=== PATIENT | male | born 1985 | race Caucasian/White ===

== ENCOUNTER 2016-07-17 16:20 | Emergency (ER) | payer OTHER ==
[2016-07-17 17:02] VITALS: BP 147/74
--- NOTE | 2016-07-17 17:16 | UC ---
Upper Extremity HPI - HPI Summary HPI Summary: 30 yo male got his right arm caught between cows at work yesterday He is right handed hurts to lift - History of Current Complaint Chief Complaint: UCUpperExtremity Stated Complaint: ARM INJURY Time Seen by Provider: 07/17/16 17:05 Hx Obtained From: Corporate Strategist Onset/Duration: Sudden Onset, Lasting Days Severity Initially: Moderate Severity Currently: Moderate Pain Intensity: 4 Pain Scale Used: 0-10 Numeric Location Of Pain: Is Diffuse Character: Aching Aggravating Factor(s): Movement, Lifting Alleviating Factor(s): Rest Related History: Occupational Injury, Dominant Hand Right - Allergies/Home Medications Allergies/Adverse Reactions: Allergies Allergy/AdvReac Type Severity Reaction Status Date / Time No Known Allergies Allergy Verified 07/17/16 17:03 Home Medications: Home Medications NK [No Home Medications Reported] 07/17/16 [History Confirmed 07/17/16] PMH/Surg Hx/FS Hx/Imm Hx Previously Healthy: Yes - Surgical History Surgical History: None - Family History Known Family History: Negative: Diabetes - Social History Alcohol Use: None Substance Use Type: None Smoking Status (MU): Former Smoker Review of Systems Constitutional: Negative Skin: Negative Eyes: Negative ENT: Negative Respiratory: Negative Cardiovascular: Negative Gastrointestinal: Negative Genitourinary: Negative Motor: Negative Neurovascular: Negative Musculoskeletal: Myalgia Neurological: Negative Psychological: Negative All Other Systems Reviewed And Are Negative: Yes Physical Exam Triage Information Reviewed: Yes Appearance: Well-Appearing, No Pain Distress, Well-Nourished Vital Signs: Initial Vital Signs Temp 99.7 F 07/17/16 16:58 Pulse 66 07/17/16 16:58 Resp 18 07/17/16 16:58 BP 147/74 07/17/16 16:58 Pulse Ox 99 07/17/16 16:58 Vital Signs Reviewed: Yes Eyes: Positive: Conjunctiva Clear ENT: Positive: Hearing grossly normal. Negative: Nasal congestion, Nasal drainage, Trismus, Muffled/hoarse voice Neck: Positive: Supple Respiratory: Positive: No respiratory distress, No accessory muscle use Cardiovascular: Negative: Tachycardia, Bradycardia Musculoskeletal Exam: Other - see image Neurological: Positive: Alert Psychological Exam: Normal Skin Exam: Normal Upper Extremity Course/Dx - Differential Dx/Diagnosis Provider Diagnoses: right arm contusion Discharge - Discharge Plan Condition: Stable Disposition: HOME Patient Education Materials: Contusion in Adults (ED) Print Language: WELSH Forms: *Work Release Referrals: No Primary Care Phys,NOPCP [Primary Care Provider] - Additional Instructions: peewee wrap during the day advil 2 up to 4 times a day for pain recheck in one week if not better Images Front/Back of Body, Lg ([place]): 1 - tender/no ecchymosis
--- NOTE | 2016-07-17 17:42 | RAD ---
INDICATION: Right humerus injury COMPARISON: None TECHNIQUE: AP, lateral, and oblique views were obtained. FINDINGS: The bony structures, joint spaces, and soft tissues are normal for age. IMPRESSION: NEGATIVE EXAMINATION.
== END 2016-07-17 18:21 | disposition home or self-care (01) ==
LOC: EDBD → UCEAST 16:20
DX: S40.021A Contusion of right upper arm, initial encounter (principal); Z87.891 Personal history of nicotine dependence; W55.29XA Other contact with cow, initial encounter; Y92.9 Unspecified place or not applicable; Y99.0 Civilian activity done for income or pay
CPT/HCPCS: 99202; G0463

== ENCOUNTER 2017-09-13 11:33 | Emergency (ER) | payer SELFPAY ==
[2017-09-13 11:49] VITALS: BP 151/95
[2017-09-13] MEDS ORDERED: Tetan/Diph/Pertus SYR(Tdap)* 0.5 ML SYR(BOOSTRIX) use SYR IM ONE (12:19)
--- NOTE | 2017-09-13 12:20 | UC ---
Hand/Wrist HPI - History Of Current Complaint Hx Obtained From: Patient, Bar Assistant Onset/Duration: Sudden Onset - cut top of R index finger with a hoof saw. Severity Currently: Moderate Pain Intensity: 4 Character Of Pain: Throbbing Aggravating Factor(s): Movement Alleviating Factor(s): Compression Associated Signs And Symptoms: Positive: Other - bleeding <Kathi Colón - Last Filed: 09/13/17 12:59> <Yodit James - Last Filed: 09/13/17 14:09> - History Of Current Complaint Chief Complaint: UCLaceration Stated Complaint: HAND LACS Time Seen by Provider: 09/13/17 12:03 - Allergies/Home Medications Allergies/Adverse Reactions: Allergies Allergy/AdvReac Type Severity Reaction Status Date / Time No Known Allergies Allergy Verified 09/13/17 11:42 PMH/Surg Hx/FS Hx/Imm Hx Previously Healthy: Yes - Surgical History Surgical History: None - Family History Known Family History: Negative: Diabetes - Social History Alcohol Use: Occasionally Substance Use Type: None Smoking Status (MU): Light Every Day Tobacco Smoker Cessation Counseling: Patient Advised to Stop - Immunization History Most Recent Tetanus Shot: unknown <Kathi Colón - Last Filed: 09/13/17 12:59> Review of Systems Constitutional: Negative Respiratory: Negative Cardiovascular: Negative Musculoskeletal: Negative Neurological: Negative Psychological: Negative Is Patient Immunocompromised?: No All Other Systems Reviewed And Are Negative: Yes <Kathi Colón - Last Filed: 09/13/17 12:59> Physical Exam Triage Information Reviewed: Yes Appearance: Well-Appearing, No Pain Distress, Well-Nourished Vital Signs: Initial Vital Signs Temp 98.3 F 09/13/17 11:40 Pulse 78 09/13/17 11:40 Resp 18 09/13/17 11:40 BP 151/95 09/13/17 11:40 Pulse Ox 97 09/13/17 11:40 Vital Signs Reviewed: Yes Respiratory Exam: Normal Cardiovascular Exam: Normal Musculoskeletal: Positive: Strength Intact, ROM Intact Neurological Exam: Normal Neurological: Positive: Alert Psychological Exam: Normal Skin: Positive: Other - avulsion injury dorsal R index finger <Kathi Colón - Last Filed: 09/13/17 12:59> Vital Signs: Initial Vital Signs Temp 98.3 F 09/13/17 11:40 Pulse 78 09/13/17 11:40 Resp 18 09/13/17 11:40 BP 151/95 09/13/17 11:40 Pulse Ox 97 09/13/17 11:40 <Yodit James - Last Filed: 09/13/17 14:09> Diagnostics - Radiology No standard instances Xray Interpretation: Positive (See Comments) - bone avulsion R tuft 2nd digit <Kathi Colón - Last Filed: 09/13/17 12:59> Hand/Wrist Course/Dx - Course Course Of Treatment: xeroform gauze, tube latia dressing with finger splint applied - Differential Dx/Diagnosis Differential Diagnosis/HQI/PQRI: Other - laceration, avulsion injury, fracture Provider Diagnoses: avulsion fracture R distal index finger <Kathi Colón - Last Filed: 09/13/17 12:59> Discharge - Sign-Out/Discharge Documenting (check all that apply): Discharge - Billing Disposition and Condition Condition: STABLE Disposition: HOME <Kathi Colón - Last Filed: 09/13/17 12:59> - Billing Disposition and Condition Condition: STABLE Disposition: HOME <Yodit James - Last Filed: 09/13/17 14:09> - Discharge Plan Condition: Stable Disposition: HOME Prescriptions: Acetaminop/Codeine 30 MG TAB* [Tylenol/Codeine 30 MG TAB*] 1 - 2 tab PO Q6H PRN #12 tab MDD 6 PRN Reason: Pain Clindamycin HCl 300 mg PO TID #21 capsule Ibuprofen TAB* [Motrin TAB* 600 MG] 600 mg PO Q6H PRN #24 tab PRN Reason: Pain Patient Education Materials: Diphtheria/Pertussis/Tetanus Vaccine (By injection ), Avulsion Fracture (ED) Print Language: TOGOLESE Referrals: No Primary Care Phys,NOPCP [Primary Care Provider] - Walker Nunez MD [Medical Doctor] - 2 Days (call friday for appointment) Additional Instructions: elevate hand start antibiotic and pain meds today keep splint on and wound clean and dry see ortho (bone) doctor-call on Friday Attestation Statement Scribe Attestation: I was available for consult. This patient was seen by the MELISSA. The patient was not presented to, seen by, or examined by me. Amairani <Yodit James - Last Filed: 09/13/17 14:09>
[2017-09-13] MEDS ORDERED: Acetaminop/Codeine 30 MG TAB* 1 TAB (300 MG/30 MG) PO ONE (12:34)
[2017-09-13] MEDS ORDERED: Ibuprofen TAB* 400 MG PO ONE (12:35)
--- NOTE | 2017-09-13 13:11 | RAD ---
HISTORY: Right second digit injury COMPARISONS: None VIEWS: 3, Frontal, lateral, and oblique views of the second digit of the right hand FINDINGS: BONE DENSITY: Normal. BONES: There is a transverse fracture through the distal phalanx of the second digit. JOINTS: There is no arthropathy. ALIGNMENT: There is no dislocation. SOFT TISSUES: Unremarkable. OTHER FINDINGS: None. IMPRESSION: FRACTURE THROUGH THE DISTAL PHALANX OF THE SECOND DIGIT OF THE RIGHT HAND
== END 2017-09-13 13:35 | disposition home or self-care (01) ==
LOC: UCEAST 11:33
DX: S62.630A Displaced fracture of distal phalanx of right index finger, initial encounter for closed fracture (principal); S61.210A Laceration without foreign body of right index finger without damage to nail, initial encounter; W27.8XXA Contact with other nonpowered hand tool, initial encounter; Y92.9 Unspecified place or not applicable; F17.200 Nicotine dependence, unspecified, uncomplicated; Z23 Encounter for immunization
CPT/HCPCS: 73140; 90471; 90715; 99203; A9270-GY; G0463

== ENCOUNTER 2017-09-18 11:15 | Day surgery (SDC) | payer OTHER ==
[2017-09-18] MEDS ORDERED: ceFAZolin 2 GM PREMIX (*) 2 GM/50 ML BAG IVPB ONE (13:22)
[2017-09-18] MEDS ORDERED: Bupivacaine 0.25% SDV* 30 ML ONE (13:55)
[2017-09-18] MEDS ORDERED: Midazolam* 1 MG/ML 2 ML VIAL (2 MG) ONE ×2 (14:40→14:59)
[2017-09-18] MEDS ORDERED: fentaNYL* 50 MCG/ML 2 ML VIAL (100 MCG VIAL) ONE (14:40)
[2017-09-18] MEDS ORDERED: Naloxone* 0.4 MG/ML 1 ML VIAL IV PRN (15:06)
[2017-09-18 16:09] VITALS: BP 123/73
[2017-09-18] MEDS ORDERED: Ibuprofen TAB* 600 MG ONE (16:16)
--- NOTE | 2017-09-19 10:06 | OP ---
DATE OF OPERATION: 09/18/17 - [facility] DATE OF : 89 SURGEON: Nicolas Villanueva MD NIGHT SHIFT: FELISA Leon. An administrative assistant data entry was needed for the procedure to aid in positioning of the hand and retraction. ANESTHESIOLOGIST: Dr. Galicia. ANESTHESIA: Local MAC. PRE-OP DIAGNOSIS: Right index finger partial amputation. POST-OP DIAGNOSIS: Right index finger partial amputation. OPERATIVE PROCEDURE: 1. Revision amputation, right index finger. 2. Ablation of right index finger nail bed including the germinal matrix. 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 He was missing most of the distal phalanx. I talked to him about trying to preserve length. I told him we needed to get the wound closed. e understood the risks and benefits and the procedure. He is a Moroccan speaker only. He wanted to proceed. ESTIMATED BLOOD LOSS: 2 mL. COMPLICATIONS: None. FINDINGS: As expected. DESCRIPTION OF PROCEDURE: Sanchez was seen in the preoperative holding area. The correct side, site, and procedure were identified. We came back to the operating room where the arm was prepped and draped in the usual fashion. A time-out was performed. I had anesthetized his finger with a digital block after him receiving some anesthesia. I exsanguinated the finger with a Tourni-Cot and left that on proximally. I then took a curette and cleaned up the dorsal tissue. Ultimately, there was a very large defect in the middle of the distal phalanx and the nail bed was very badly traumatized. It would have taken a flap to get the wound closed. I decided the better thing to do would be to excise that piece of distal phalanx that remained distally. I did this with a [place] blade. At this point, I needed to excise the germinal matrix in order to perform a good amputation without spike nail developing subsequently. I took the [place] blade and I removed what remained of the germinal matrix. Additionally, I excised all of the germinal matrix that remained. Once the nail bed was entirely ablated, we were prepared to perform the remainder of the anesthesia. I then took the bone cutter and freshened up the edges of the distal phalanx that remained. At this point, I had a very nice clean surgical looking wound. I irrigated it out copiously. I brought the volar flap up and marked out my lines for my definitive flap. The skin was trimmed with the 15 blade. I then used a nylon suture and sewed the flap down from radial to ulnar. When I got to the ulnar, there was still a bit of a dog ear; therefore, I trimmed that back with a 15 blade and Elizabeth scissors excising the triangular tissue. After this was done, the wound was closed very nicely with minimal dog ears. The Tourni-Cot was released, the flap pinked up. The wound was dressed with Xeroform, some Freida and a Coban dressing. The Tourni-Cot was removed. Patient was woken up and taken to the recovery room in stable condition. [id number]/[facility] #: [id number] KENZIE
== END 2017-09-18 16:31 | disposition home or self-care (01) ==
LOC: OREAST 11:15
PROVIDERS: ATTEND Orthopaedic Surgery Hand Surgery
DX: S68.620A Partial traumatic transphalangeal amputation of right index finger, initial encounter (principal); W31.89XA Contact with other specified machinery, initial encounter; Y93.89 Activity, other specified; Y92.79 Other farm location as the place of occurrence of the external cause; Y99.0 Civilian activity done for income or pay; F17.210 Nicotine dependence, cigarettes, uncomplicated
CPT/HCPCS: A9270-GY; J0690; J2250; J3010

== ENCOUNTER 2019-01-27 18:01 | Emergency (ER) | payer OTHER ==
--- OUTSIDE RECORDS SUMMARY | 2019-01-27 18:08 | XMS REPORT ---
:1985 Author Organization [facility] Address [address] [place] [address] Care Team Providers Name Role Phone Yasmin Valdivia Unavailable Unavailable PROBLEMS No Known Problems ALLERGIES No Known Allergies ENCOUNTERS Encounter Location Date Diagnosis [address], [place] [address], [place] [address] R10.30 and Acute right ankle pain M25.[address], [place] [address] [facility] [address] [facility] [address], [place] [address] [place] [address] [place] [id number] [place], [place] [address] [facility] [address] [place], [place] [id number] [place] [id number] [place], [place] [address] [facility] [address], Right knee injury [facility] [address] [place], [place] [id number] [facility] [address] [facility] Jan, [place] [address] Case Management [address] [place], [address] [facility] [address], Dermatitis 692.[address] [facility] [address] [place], [place] [id number] IMMUNIZATIONS No Known Immunizations SOCIAL HISTORY Never Assessed REASON FOR REFERRAL FUNCTIONAL STATUS PLAN OF CARE Activity Details Follow Up 4 Weeks Reason:f/u right ankle pain Pending Test US ABDOMINAL COMPLETE VITAL SIGNS Temperature 97.9 degrees Fahrenheit 2019-01-19 Heart Rate 20 2019-01-19 Weight 163.5 2019-01-19 Height 61.2" in 2019-01-19 BMI 30.69 kg/m2 2019-01-19 Oximetry 98RA % 2019-01-19 Blood pressure systolic 128 mm Hg 2019-01-19 Blood pressure diastolic 79 mm Hg 2019-01-19 MEDICATIONS Medication Instructions Dosage Frequency Start End Duration Status Date Date Naproxen 500 Orally every 12 1 tablet 12h Jan, -Takin MG hrs as needed 2015 Naproxen 500 Orally every 12 1 tablet 12h Dec, day(s) Active mg hrs with food 2018 2018 or milk as needed PROCEDURES Procedure Date Ordered Result Body Site Sign Lang/Oral Residential Mental Health Worker > 8 minutes January 19, 2019 BODY MASS INDEX DOCD January 19, 2019 SMOKING + 2ND HAND ASSESSED January 19, 2019 Oxygen saturation results documented and reviewed January 19, 2019 BLOOD PRESSURE, MEASURED January 19, 2019 RESULTS No Results REASON FOR VISIT abdominal pain, SAI , RHIO /fuh, PHQ2, Offer Tdap, Tobacco screening /fuh, agrees to have Tdap vaccine today, pt c/o R and L lower quadrant pain that started 5 days ago. Patient also states he was playing soccer this Friday and states he is in extreme pain when walking, or working. Insurance Providers [facility] Health Member Patient Patient Patient Patient Patient Subscriber Subscriber Subscriber Group Insurance Plan Plan Plan Plan ID Relationship Address Phone Name Date of ID Name Date of No Type Insurance Insurance Insurance Coverage to Subscriber Address Phone Name Dates Case Man [phone] Case Man mariann Polo [id number] [facility] [place] [facility] [place] [address] [place] Voucher Voucher Migrant M [phone] Migrant M mariann Polo [id number] [place] [address] [place] [address]
[2019-01-27] MEDS ORDERED: Ibuprofen TAB* 600 MG PO ONE (18:27)
[2019-01-27 18:32] VITALS: BP 130/72
[2019-01-27] MEDS ORDERED: Lidocaine 2% w EPI 1:100,000* 20 ML MDV VIAL INJ ONE (18:55)
[2019-01-27] MEDS ORDERED: Cephalexin CAP* 500 MG PO ONE (19:44)
--- NOTE | 2019-01-27 19:52 | UC ---
Laceration HPI - HPI Summary HPI Summary: 33 yo male presents soon after sustaining a left forearm laceration at work cow forced gate closed on his arm he is right handed td up to date - History Of Current Complaint Chief Complaint: UCLaceration Stated Complaint: LEFT ARM LAC Time Seen by Provider: 01/27/19 18:25 Hx Obtained From: Patient Laceration Location: Arm - Left Mechanism Of Injury: Blunt Trauma Onset/Duration: Sudden Onset Severity: Severe Pain Intensity: 10 Pain Scale Used: 0-10 Numeric Aggravating Factors: Movement Full Body (No Head): 1 - laceration - Allergies/Home Medications Allergies/Adverse Reactions: Allergies Allergy/AdvReac Type Severity Reaction Status Date / Time No Known Allergies Allergy Verified 01/27/19 18:32 PMH/Surg Hx/FS Hx/Imm Hx Previously Healthy: Yes - Surgical History Surgical History: None - Family History Known Family History: Positive: Non-Contributory Negative: Diabetes - Social History Alcohol Use: Weekly Alcohol Amount: 24 beers/week Substance Use Type: None Smoking Status (MU): Light Every Day Tobacco Smoker Type: Cigarettes Length of Time of Smoking/Using Tobacco: 1 year Household Exposure Type: Cigarettes - Immunization History Most Recent Tetanus Shot: unknown Review of Systems All Other Systems Reviewed And Are Negative: Yes Constitutional: Positive: Negative Skin: Positive: Negative Eyes: Positive: Negative ENT: Positive: Negative Respiratory: Positive: Negative Cardiovascular: Positive: Negative Gastrointestinal: Positive: Negative Genitourinary: Positive: Negative Motor: Positive: Negative Neurovascular: Positive: Negative Musculoskeletal: Positive: Negative Neurological: Positive: Negative Psychological: Positive: Negative Physical Exam Triage Information Reviewed: Yes Appearance: Well-Appearing, No Pain Distress, Well-Nourished Vital Signs: Initial Vital Signs Temp 99.2 F 01/27/19 18:09 Pulse 64 01/27/19 18:09 Resp 16 01/27/19 18:09 BP 130/72 01/27/19 18:09 Pulse Ox 100 01/27/19 18:09 Vital Signs Reviewed: Yes Eyes: Positive: Conjunctiva Clear ENT: Positive: Hearing grossly normal. Negative: Nasal congestion, Nasal drainage, Tonsillar swelling, Tonsillar exudate, Muffled voice, Hoarse voice Dental Exam: Normal Neck: Positive: Supple, Nontender, No Lymphadenopathy Respiratory: Positive: Lungs clear, Normal breath sounds, No respiratory distress, No accessory muscle use Cardiovascular: Positive: RRR Musculoskeletal: Positive: ROM Intact, No Edema Neurological: Positive: Alert Psychological Exam: Normal Skin Exam: Other - see image Procedures - Splinting Left Upper Extremity Hand-Made Type: orthoglass Splint: ulnar Pre-Proc Neuro Vasc Exam: normal Post-Proc Neuro Vasc Exam: normal Laceration Repair - Laceration Repair 1 Procedure Summary: flushed (high pressure) with 800 cc NS Description: Linear Laceration Size After Repair: Length (cm) - 5cm, Width (mm) - 10, Depth (mm) - 7 Debridement: minimal Modified For Repair: No Anesthesia Used: 2.0% Lido Additive Used (in ml): Epi Cleansing Completed Via Routine Prep: Yes Irrigation With Pressure Irrigation Device: Yes Closure Material: Sutures Closure Method: Multilayer Suture Of: Skin - 10 4-0 nylon, SQ - 4 4-0 vicryl Suture Type: Nylon, Vicryl Diagnostics - Radiology No standard instances Radiology Interpretation Completed By: ED Physician Summary of Radiographic Findings: no fx Laceration Course/Dx - Diagnosis Provider Diagnosis: Laceration of left forearm Discharge - Sign-Out/Discharge Documenting (check all that apply): Patient Departure All imaging exams completed and their final reports reviewed: No - Discharge Plan Condition: Stable Disposition: HOME Patient Education Materials: Laceration (ED) Print Language: MACEDONIAN Referrals: No Primary Care Phys,NOPCP [Primary Care Provider] - Additional Instructions: Keflex 500mg 4x day for 7 days ibuprofen 200 3 pills 4x day as needed for pain elevate keep arm in sling recheck here 8/9 in AM recheck sooner if your develop pain not controlled by ibuprofen - Billing Disposition and Condition Condition: STABLE Disposition: Home
[2019-01-27] MEDS ORDERED: Cephalexin CAP* 500 MG ONE (20:01)
--- NOTE | 2019-01-28 07:36 | UC ---
- Progress Note Progress Note: Chart reviewed Radiology read is the same as UC wet read No change in plan Course/Dx - Diagnoses Provider Diagnoses: Laceration of left forearm Discharge - Sign-Out/Discharge Documenting (check all that apply): Post-Discharge Follow Up All imaging exams completed and their final reports reviewed: Yes - Discharge Plan Condition: Stable Disposition: HOME Patient Education Materials: Laceration (ED) Print Language: VINCENTIAN Referrals: No Primary Care Phys,NOPCP [Primary Care Provider] - Additional Instructions: Keflex 500mg 4x day for 7 days ibuprofen 200 3 pills 4x day as needed for pain elevate keep arm in sling recheck here 8/9 in AM recheck sooner if your develop pain not controlled by ibuprofen - Billing Disposition and Condition Condition: STABLE Disposition: Home
== END 2019-01-27 20:30 | disposition home or self-care (01) ==
LOC: UCEAST 18:01
DX: S51.812A Laceration without foreign body of left forearm, initial encounter (principal); W23.0XXA Caught, crushed, jammed, or pinched between moving objects, initial encounter; Y93.K9 Activity, other involving animal care; Y92.89 Other specified places as the place of occurrence of the external cause; Y99.0 Civilian activity done for income or pay; F17.210 Nicotine dependence, cigarettes, uncomplicated
CPT/HCPCS: 12002; 99213; A9270-GY; G0463

== ENCOUNTER 2019-01-29 11:31 | Emergency (ER) | payer OTHER ==
--- NOTE | 2019-01-29 11:47 | UC ---
Skin Complaint HPI - HPI Summary HPI Summary: 33 yo male presents accompanied by an transmissions systems operator as he is largely bruneian speaking only. He was seen here 2 days ago for a laceration to his left forearm that required SQ and skin sutures. He was splinted, bandaged, and placed on anbx and advised to return for a wound check in 2 days. He has been taking his anbx. 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 Has had no fevers, pain, or drainage from the site. Has not removed the bandage or splint. He does not moderate decreased strength in his left hand - especially nuclear operator strength - History of Current Complaint Time Seen by Provider: 01/29/19 11:47 Stated Complaint: RECHECK OF WOUND Hx Obtained From: Patient, Awning Finisher Onset/Duration: Sudden Onset Onset Severity: Moderate Current Severity: None - Allergy/Home Medications Allergies/Adverse Reactions: Allergies Allergy/AdvReac Type Severity Reaction Status Date / Time No Known Allergies Allergy Verified 01/29/19 11:48 PMH/Surg Hx/FS Hx/Imm Hx - Additional Past Medical History Additional PMH: None - Surgical History Surgical History: None - Family History Known Family History: Positive: Non-Contributory Negative: Diabetes - Social History Lives: With Family Alcohol Use: Weekly Alcohol Amount: 24 beers/week Substance Use Type: None Smoking Status (MU): Light Every Day Tobacco Smoker Type: Cigarettes Length of Time of Smoking/Using Tobacco: 1 year Household Exposure Type: Cigarettes - Immunization History Most Recent Tetanus Shot: unknown Review of Systems All Other Systems Reviewed And Are Negative: Yes Constitutional: Positive: Negative Skin: Positive: Other - Left forearm lac check Respiratory: Positive: Negative Cardiovascular: Positive: Negative Neurovascular: Positive: Negative Neurological: Positive: Negative Psychological: Positive: Negative Physical Exam - Summary Physical Exam Summary: GENERAL: NAD. WDWN. No pain distress. SKIN: LEFT FOREARM: [address] with well approximated laceration. Mild edema. No erythema, drainage, streaking, or tenderness. Very clean appearing. NECK: Supple. Nontender. No lymphadenopathy. CHEST: No accessory muscle use. Breathing comfortably and in no distress. CV: Pulses intact. Cap refill <2seconds MSK: Left nuclear operator strength 3/5 compared to right. FROM all left digits and wrist. NEURO: Alert. PSYCH: Age appropriate behavior. Triage Information Reviewed: Yes Vital Signs: Vital Signs: Temp Pulse Resp BP Pulse Ox 0 F 73 16 116/58 100 01/29/19 11:44 01/29/19 11:44 01/29/19 11:44 01/29/19 11:44 01/29/19 11:44 Vital Signs Reviewed: Yes Course/Dx - Course Course Of Treatment: Wound appears to be without infection, healing well, and is exquisitely approximated. Continue anbx. The wound was redressed today with telfa, gauze, and cling. He can remain out of the splint and use the sling prn. Will write him a note out of work until sutures are removed. Regarding his left hand/nuclear operator weakness, I suspect this is due to the swelling/ trauma to the area and will return with time, but will make a referral to Orthopedics today and if this has not improved by day 10 s/p injury - to f/u there for suture removal and further eval. - Diagnoses Provider Diagnosis: Visit for wound check Discharge - Sign-Out/Discharge Documenting (check all that apply): Patient Departure All imaging exams completed and their final reports reviewed: No Studies - Discharge Plan Condition: Stable Disposition: HOME Patient Education Materials: Care For Your Stitches (DC) Print Language: P[place] ISLANDER Forms: *Work Release Referrals: No Primary Care Phys,NOPCP [Primary Care Provider] - Nicolas Villanueva MD [Medical Doctor] - If Needed Additional Instructions: If you develop a fever, shortness of breath, chest pain, new or worsening symptoms - please call your PCP or go to the ED immediately. 1) Please change the dressing daily until well healed. 2) Continue taking the antibiotic 3) Have the stitches removed in 10-12 days from 01/27 4) If the strength has not improved by day 10, please call Orthopedics at the number below to schedule an appointment for further evaluation - Billing Disposition and Condition Condition: STABLE Disposition: Home
[2019-01-29 11:48] VITALS: BP 116/58
== END 2019-01-29 12:19 | disposition home or self-care (01) ==
LOC: UCEAST 11:31
DX: S51.812D Laceration without foreign body of left forearm, subsequent encounter (principal); X58.XXXD Exposure to other specified factors, subsequent encounter; F17.210 Nicotine dependence, cigarettes, uncomplicated
CPT/HCPCS: 99212; G0463

== ENCOUNTER 2019-02-08 10:50 | Emergency (ER) | payer OTHER ==
[2019-02-08 11:04] VITALS: BP 112/63
[2019-02-08] MEDS ORDERED: Benzoin COMPOUND swab* 1 applicator pak TOPICAL ONE (12:39)
[2019-02-08] MEDS ORDERED: Benzoin Compound STICK ONE (12:41)
--- NOTE | 2019-02-08 12:44 | UC ---
HPI Wound/Suture Re-check - HPI Summary HPI Summary: 33 year old male who speaks no Maltese with another person who speaks [place] Island[place] and Maltese. He is here for suture removal from a laceration that was sustained from a cow shutting a gate on his left arm. The pt is right handed. His tetanus is up to date per his initial visit chart. The wound was sustained 10 days ago, and has been healing nicely. - History Of Current Complaint Chief Complaint: UCLaceration Stated Complaint: SUTURE REMOVAL Time Seen by Provider: 02/08/19 12:22 Hx Obtained From: Patient Onset/Duration: Sudden Onset, Other - lacerated 10 days ago Severity: Mild Pain Intensity: 0 - Allergies/Home Medications Allergies/Adverse Reactions: Allergies Allergy/AdvReac Type Severity Reaction Status Date / Time No Known Allergies Allergy Verified 02/08/19 11:04 PMH/Surg Hx/FS Hx/Imm Hx Previously Healthy: Yes - Surgical History Surgical History: None - Family History Known Family History: Positive: Non-Contributory Negative: Diabetes - Social History Alcohol Use: Weekly Alcohol Amount: 24 beers/week Substance Use Type: None Smoking Status (MU): Light Every Day Tobacco Smoker Type: Cigarettes Length of Time of Smoking/Using Tobacco: 1 year Household Exposure Type: Cigarettes - Immunization History Most Recent Tetanus Shot: unknown Review of Systems All Other Systems Reviewed And Are Negative: Yes Skin: Positive: Other - healed laceration left forearm Is Patient Immunocompromised?: No Physical Exam Triage Information Reviewed: Yes Appearance: Well-Appearing, No Pain Distress, Well-Nourished Vital Signs: Initial Vital Signs Temp 98 F 02/08/19 11:01 Pulse 66 02/08/19 11:01 Resp 16 02/08/19 11:01 BP 112/63 02/08/19 11:01 Pulse Ox 100 02/08/19 11:01 Vital Signs Reviewed: Yes Musculoskeletal Exam: Normal Musculoskeletal: Positive: Strength Intact, ROM Intact Neurological: Positive: Alert, Muscle Tone Normal Psychological Exam: Normal Skin: Positive: Other - Healed laceration left forearm. 10 sutures removed without difficulty. Pt tolerated procedure well. Streistrips applied and dressing. Healed laceration is about 5.0 cm in length Course/Dx - Course Course Of Treatment: Comfortable here - Diagnosis Provider Diagnosis: Visit for suture removal Discharge - Sign-Out/Discharge Documenting (check all that apply): Patient Departure All imaging exams completed and their final reports reviewed: No Studies - Discharge Plan Condition: Good Disposition: HOME Forms: *Work Release Referrals: Care [facility] [Outside] No Primary Care Phys,NOPCP [Primary Care Provider] - Additional Instructions: Change the dressing daily. Keep the steristrips on for about 3-4 days - Billing Disposition and Condition Condition: GOOD Disposition: Home
== END 2019-02-08 12:54 | disposition home or self-care (01) ==
LOC: UCEAST 10:50
DX: S41.112D Laceration without foreign body of left upper arm, subsequent encounter (principal); W23.0XXD Caught, crushed, jammed, or pinched between moving objects, subsequent encounter; F17.210 Nicotine dependence, cigarettes, uncomplicated
CPT/HCPCS: 99211; G0463